=== PATIENT | male | born 1950 | race American Indian/Alaskan Native ===

== ENCOUNTER 2021-10-16 15:02 | Emergency (ER) | payer OTHER, MEDICARE ==
--- NOTE | 2021-10-16 16:16 | Emergency Department Report ---
ED General Adult HPI - General Chief complaint: Urogenital-Male Stated complaint: NEW CATHETER Time Seen by Provider: 10/16/21 16:08 Source: patient Mode of arrival: Ambulatory Limitations: No Limitations - History of Present Illness Initial comments: Patient is 71 years old male with history of hypertension and a recent colon polyp removal at the [facility]. Patient discharged home with a Gottlieb catheter. Patient presented to the ER stating that there is a leakage from the catheter. Patient denied any other symptoms. He specifically denied any abdominal pain, nausea or vomiting. No fever or chills. - Related Data Allergies Allergy/AdvReac Type Severity Reaction Status Date / Time No Known Allergies Allergy Verified 10/16/21 15:50 ED Review of Systems ROS: Stated complaint: NEW CATHETER Other details as noted in HPI Comment: All other systems reviewed and negative Constitutional: denies: chills, fever Respiratory: denies: cough, shortness of breath, SOB with exertion Cardiovascular: denies: chest pain, palpitations Gastrointestinal: denies: abdominal pain, nausea, vomiting, diarrhea, constipation, hematemesis Musculoskeletal: denies: back pain Neurological: denies: headache, weakness ED Past Medical Hx - Past Medical History Hx Hypertension: Yes - Surgical History Past Surgical History?: No ED Physical Exam - General Limitations: No Limitations General appearance: alert, in no apparent distress - Head Head exam: Present: atraumatic, normocephalic, normal inspection - Eye Eye exam: Present: normal appearance, PERRL - ENT ENT exam: Present: normal exam, normal orophraynx, mucous membranes moist - Neck Neck exam: Present: normal inspection, full ROM. Absent: tenderness, meningismus - Respiratory Respiratory exam: Present: normal lung sounds bilaterally - Cardiovascular Cardiovascular Exam: Present: regular rate, normal rhythm, normal heart sounds - GI/Abdominal GI/Abdominal exam: Present: soft, normal bowel sounds. Absent: distended, tenderness, guarding, rebound, rigid - exam: Present: other (Gottlieb catheter in place. There is leakage.) - Extremities Exam Extremities exam: Present: normal inspection - Back Exam Back exam: Present: normal inspection, full ROM. Absent: CVA tenderness (R), CVA tenderness (L) - Neurological Exam Neurological exam: Present: alert, oriented X3, CN II-XII intact - Psychiatric Psychiatric exam: Present: normal mood - Skin Skin exam: Present: warm, intact, normal color ED Course Vital Signs 10/16/21 15:54 Temperature 98.3 F Pulse Rate 121 H Respiratory 18 Rate Blood Pressure 136/82 O2 Sat by Pulse 99 Oximetry ED Medical Decision Making - Medical Decision Making Patient is 71 years old male with history of hypertension and a recent colon polyp removal at the [facility]. Patient discharged home with a Gottlieb catheter. Patient presented to the ER stating that there is a leakage from the catheter. Patient denied any other symptoms. He specifically denied any abdominal pain, nausea or vomiting. No fever or chills. Gottlieb catheter change to 16 [place]. No leakage. Patient stated that he is wang dy to go home. Patient advised to follow-up with his primary doctor and urologist in the next 2 to 3 days and to return to the ER if he develop any symptoms. Critical care attestation.: If time is entered above; I have spent that time in minutes in the direct care of this critically ill patient, excluding procedure time. ED Disposition Clinical Impression: Gottlieb catheter problem Disposition: 01 HOME / SELF CARE / HOMELESS Is pt being admited?: No Condition: Stable Instructions: Indwelling Urinary Catheter Care, Adult Referrals: PRIMARY CARE, [Primary Care Provider] - 3-5 Days
[2021-10-16 18:43] VITALS: BP 136/76
== END 2021-10-16 18:42 | disposition home or self-care (01) ==
LOC: ED 15:02
DX: T83.038A Leakage of other urinary catheter, initial encounter (principal); I10 Essential (primary) hypertension; Y73.8 Miscellaneous gastroenterology and urology devices associated with adverse incidents, not elsewhere classified; Y92.488 Other paved roadways as the place of occurrence of the external cause
CPT/HCPCS: 51702; 99282